=== PATIENT | female | born 1960 ===

== ENCOUNTER 2017-09-17 08:37 | Outpatient (CLI) | payer OTHER ==
[2017-09-17 09:08] LABS: % BASOPHILS 0.2 % (0.0-2.0); % EOSINOPHILS 2.7 % (0.0-5.0); % LYMPHOCYTES 28.5 % (20.0-50.0); % MONOCYTES 4.9 % (2.0-10.0); % NEUTROPHILS 63.7 % (40.0-80.0); EOSINOPHILE ABSOLUTE 0.2 Th/cmm (0.1-0.4); HEMATOCRIT 43.7 % (41.0-60); HEMOGLOBIN 14.3 gm/dL (12-16); LYMPHOCYTE ABSOLUTE 1.7 Th/cmm (1.5-3.0); MEAN CELL VOLUME 89.3 fl (81-100); MEAN CORPUSCULAR HEMOGLOBIN 29.2 pg (27.0-31.0); MEAN CORPUSCULAR HGB CONC 32.7 pg (28.0-36.0); MEAN PLATELET VOLUME 7.9 fl; MONOCYTE ABSOLUTE 0.3 Th/cmm (0.3-1.0); NEUTROPHILE ABSOLUTE 3.7 Th/cmm (1.8-8.0); PLATELET COUNT 244 Th/cmm (150-400); RED CELL DISTRIBUTION WIDTH 11.4 % (11.5-20.0); WHITE BLOOD COUNT 5.9 Th/cmm (4.8-10.8)
[2017-09-17 09:22] LABS: ALBUMIN 4.2 gm/dL (3.7-5.3); ALKALINE PHOSPHATASE 89 U/L (34-104); ANION GAP 8.8 (7.0-16.0); BILIRUBIN,TOTAL 0.4 mg/dL (0.3-1.0); BUN - UREA NITROGEN 18 mg/dL (7-25); CARBON DIOXIDE 32.1 mEq/L (21.0-31.0); CHLORIDE 101 mEq/L (98-107); CHOLESTEROL 183 mg/dL (<200); CREATININE - SERUM 0.8 mg/dL (0.6-1.2); GFR AFRICAN-AMERICAN > 60.0 ml/min (>90); GFR NON AFRICAN-AMERICAN > 60.0 ml/min; GLUCOSE 101 mg/dL (70-105); HDL -HIGH DENSITY LIPOPROTEIN 47 mg/dL (23-92); POTASSIUM SERUM 3.9 mEq/L (3.5-5.1); SGOT 40 U/L (13-39); SGPT/ALT 63 U/L (7-52); SODIUM SERUM 138 mEq/L (136-145); TOTAL PROTEIN,SERUM 8.3 gm/dL (6.0-8.3); TRIGLYCERIDES 128 mg/dL (<150)
[2017-09-17 09:35] LABS: ESR SEDIMENTATION SED RATE 27 mm/hr (0-30)
== END 2017-09-17 09:03 ==
LOC: EEVIPCON 08:37 → LAB 08:37
PROVIDERS: ATTEND Internal Medicine
DX: Z00.01 Encounter for general adult medical examination with abnormal findings (principal); E78.5 Hyperlipidemia, unspecified; I10 Essential (primary) hypertension; M35.00 Sjogren syndrome, unspecified; R79.89 Other specified abnormal findings of blood chemistry
CPT/HCPCS: 36415-UA; 80053-TC; 80061-TC; 82270-TC; 82652-90; 84443-TC; 85025-TC; 85652-TC; 86141-TC

== ENCOUNTER 2017-09-17 09:15 | Outpatient (CLI) | payer OTHER ==
--- NOTE | 2017-09-18 09:46 | Diagnostic Imaging Report ---
EXAM: Right knee joint HISTORY: Pain COMPARISON: None FINDINGS: Multiple views of the right knee joint reviewed. The study demonstrates irregularity of the lateral tibial eminence, nondisplaced fracture cannot be excluded. If clinically indicated CT examination might be helpful. If ligamentous or meniscal injury is considered MRI examination might be helpful. IMPRESSION: Irregularity of the lateral tibial eminence is noted, nondisplaced fracture cannot be excluded clinical correlation and CT examination of the right knee joint might be helpful.
--- NOTE | 2017-09-18 09:47 | Diagnostic Imaging Report ---
EXAM: Left knee joint HISTORY: Pain COMPARISON: None FINDINGS: Multiple views of the right knee joint reviewed. The study demonstrates no evidence of fracture or dislocation. There is no evidence for joint effusion. The patella is intact. If clinically indicated ligamentous or meniscal injury is considered MRI examination might be helpful. IMPRESSION: Normal examination right knee joint.
== END 2017-09-17 10:12 ==
LOC: RAD 09:15
DX: M25.561 Pain in right knee (principal)
CPT/HCPCS: 73562-TC-LT; 73562-TC-RT